=== PATIENT | male | born 1950 | race Caucasian/White ===

== ENCOUNTER 2017-02-23 20:45 | Emergency (ER) | payer MEDICARE, OTHER ==
[~2017-02-23] VITALS: Ht 175.3 cm; Wt 117.4 kg
[2017-02-23] MEDS ORDERED: LIPI40TA PO (21:45)
[2017-02-23] MEDS ORDERED: ASPI1TAB69 PO (21:45)
[2017-02-23] MEDS ORDERED: METO50TA PO (21:45)
[2017-02-23] MEDS ORDERED: ENAL20TA PO (21:45)
[2017-02-23] MEDS ORDERED: CITA20TA4 PO (21:45)
[2017-02-23] MEDS ORDERED: SILVER SULFADIAZINE 1% CR 50 GM JAR TOPICAL ONE (22:00)
[2017-02-23 22:11] VITALS: BP 166/93; PULSE 111; RESP 18; TEMP 98.1; O2SAT 96
[2017-02-23] MEDS ORDERED: SILV1CRE20 TOPICAL (22:11)
--- NOTE | 2017-02-23 22:11 | PD ---
HPI Chief Complaint: Skin Problem Time Seen by Provider: 22:04 Travel History International Travel<30 days: No Contact w/Intl Traveler<30days: No Traveled to known affect area: No History of Present Illness HPI Patient is a 66-year-old male presenting to emergency for evaluation of sunburn to his feet. Patient was out in the sun on Wednesday, he applied sunscreen but experienced a burn to the dorsal aspects of his feet. He denies a fever, chills , nausea, vomiting. He states his feet are sore. He called his primary doctor in [place] who called and triamcinolone cream. He has been using this, he is also been taking Tylenol. He reports his pain is a 5 out of 10. [facility] Past Medical History High Cholesterol: Yes Diminished Hearing: No Hypertension: Yes Tetanus Vaccination: < 5 Years Influenza Vaccination: Yes Past Surgical History Abdominal Surgery: Yes (UMBILICAL HERNIA) Joint Replacement: Yes (CAYETANO KNEES) Other Surgery: Yes (SINUS, LEFT NECK AND THROAT SKIN CANCER) Social History Alcohol Use: No Tobacco Use: No Substance Use: No Allergies-Medications (Allergen,Severity, Reaction): Coded Allergies: Morphine (Verified Allergy, Unknown, HIVES, 02/23/17) Reported Meds & Prescriptions Reported Meds & Active Scripts Active Silvadene Topical (Silver Sulfadiazine) 1 % Cream 1 Applic TOPICAL BID Reported Aspirin 81 Mg Tabdr 81 Mg PO DAILY Lipitor (Atorvastatin Calcium) 40 Mg Tab 40 Mg PO HS Enalapril (Enalapril Maleate) 20 Mg Tab 20 Mg PO BID Metoprolol Tartrate 50 Mg Tab 50 Mg PO BID Citalopram (Citalopram Hydrobromide) 20 Mg Tab 20 Mg PO DAILY Review of Systems Except as stated in HPI: all other systems reviewed are Neg General / Constitutional: No: Fever, Chills Cardiovascular: No: Chest Pain or Discomfort Respiratory: No: Shortness of Breath Gastrointestinal: No: Nausea Musculoskeletal: Positive: Myalgias, Edema, Pain Skin: Positive Change in Pigmentation, Positive Lesions Physical Exam Narrative GENERAL: Well-nourished, well-developed patient. SKIN: Focused skin assessment warm/dry. Erythema and edema noted to the dorsal aspect of his feet bilaterally. There is one blister on the right foot and one blister on the left foot each is approximately 2 cm in size. There is a smaller blister on the left foot approximately 1 cm in size. Positive pedal pulses, brisk capillary refill. HEAD: Normocephalic. EYES: No scleral icterus. No injection or drainage. NECK: Supple, trachea midline. No JVD or lymphadenopathy. CARDIOVASCULAR: Regular rate and rhythm without murmurs, gallops, or rubs. RESPIRATORY: Breath sounds equal bilaterally. No accessory muscle use. GASTROINTESTINAL: Abdomen soft, non-tender, nondistended. MUSCULOSKELETAL: No cyanosis, or edema. BACK: Nontender without obvious deformity. No CVA tenderness. Data Data Last Documented VS Vital Signs Date Time Temp Pulse Resp B/P Pulse Ox O2 Delivery O2 Flow Rate FiO2 02/23/17 22:22 98.1 111 18 166/93 96 02/23/17 22:21 21 Orders Silver Sulfadia 1% Crm (50 Gm) (Silvaden (02/23/17 22:00) Wound Care (02/23/17 22:11) MDM Medical Decision Making Medical Screen Exam Complete: Yes Emergency Medical Condition: Yes Interpretation(s) Vital Signs Date Time Temp Pulse Resp B/P Pulse Ox O2 Delivery O2 Flow Rate FiO2 02/23/17 22:22 98.1 111 18 166/93 96 02/23/17 22:21 96 18 98 21 02/23/17 22:11 98.1 111 18 166/93 96 Differential Diagnosis Superficial burn versus first-degree burn versus cellulitis versus other Narrative Course Patient is a 66-year-old male presenting to the emergency room evaluation of sunburn to his feet. He has been putting triamcinolone cream on it however he presents due to continued redness and pain. Blisters were drained, nonadherent dressing and Silvadene cream applied. Patient is encouraged to follow-up with his primary doctor. He is encouraged to apply sunscreen several times while in the sun. Patient is encouraged to return to emergency department for any new or worsening symptoms. Patient verbalized understanding of these instructions. Patient stable for discharge. Heart rate was initially elevated on arrival, reassess and 96. Patient stable for discharge. Diagnosis Primary Impression: Second degree burn of foot Qualified Code: T25.229A - Second degree burn of foot, unspecified laterality , initial encounter Referrals: Primary Care Physician Patient Instructions: General Instructions, Second Degree Burn (GEN) Additional Instructions: Follow-up with your primary doctor Apply Silvadene cream twice daily Use sunscreen when out in the sun, apply several times as directed Return to emergency department for any new or worsening symptoms Med/Other Pt SpecificInfo: Prescription(s) given Scripts Silver Sulfadiazine Topical (Silvadene Topical)1 % Cream1 Applic TOPICAL BID # 400 GM Ref 0 Prov:Karen Wu 02/23/17 Disposition: 01 DISCHARGE HOME Condition: Stable Karen Wu Feb 23, 2017 22:11
[2017-02-23 22:22] VITALS: BP 166/93; PULSE 111; RESP 18; TEMP 98.1; O2SAT 96
== END 2017-02-23 22:54 | disposition home or self-care (01) ==
LOC: PHED 20:45 → PHEFT 22:54
DX: L55.1 Sunburn of second degree (principal); E78.00 Pure hypercholesterolemia, unspecified; I10 Essential (primary) hypertension
CPT/HCPCS: 16020

== ENCOUNTER 2017-04-24 15:07 | Emergency (ER) | payer MEDICARE, OTHER ==
[~2017-04-24] VITALS: Ht 175.3 cm; Wt 115.0 kg
[~2017-04-24 15:07] MED LIST: ASPI1TAB69 PO; CITA20TA4 PO; ENAL20TA PO; LIPI40TA PO; METO50TA PO; SILV1CRE20 TOPICAL
[2017-04-24 15:11] VITALS: BP 157/89; PULSE 100; RESP 20; TEMP 97.9; O2SAT 95
[2017-04-24] MEDS ORDERED: ASPI81CH CHEW (15:18)
--- NOTE | 2017-04-24 15:47 | PD ---
HPI Chief Complaint: Laceration/Skin Injury Time Seen by Provider: 15:20 Travel History International Travel<30 days: No Contact w/Intl Traveler<30days: No Traveled to known affect area: No History of Present Illness HPI 66-year-old male presents emergency department for evaluation of laceration to the base of left thumb. She reports while cutting a watermelon in his kitchen knife slipped causing a flap laceration to the left thumb. He has full range of motion. He has normal sensation in the digit. The bleeding is well- controlled. He reports mild pain at the site of the laceration, worse with movement and relieved with rest, severity 2 out of 10.. He has no other medical complaint. [facility] Past Medical History Narrative Medical Significant for hypertension. High Cholesterol: Yes Diminished Hearing: No Hypertension: Yes Tetanus Vaccination: Unknown Influenza Vaccination: Yes ?: Not Past Surgical History Abdominal Surgery: Yes (UMBILICAL HERNIA) Joint Replacement: Yes (CAYETANO KNEES) Other Surgery: Yes (SINUS, LEFT NECK AND THROAT SKIN CANCER) Social History Alcohol Use: No Tobacco Use: No Substance Use: No Allergies-Medications (Allergen,Severity, Reaction): Coded Allergies: Morphine (Verified Allergy, Unknown, HIVES, 04/24/17) Reported Meds & Prescriptions Reported Meds & Active Scripts Active Reported Aspirin 81 Mg Chew 81 Mg CHEW DAILY Lipitor (Atorvastatin Calcium) 40 Mg Tab 40 Mg PO HS Enalapril (Enalapril Maleate) 20 Mg Tab 20 Mg PO BID Metoprolol Tartrate 50 Mg Tab 50 Mg PO BID Citalopram (Citalopram Hydrobromide) 20 Mg Tab 20 Mg PO DAILY Review of Systems Except as stated in HPI: all other systems reviewed are Neg Physical Exam Narrative GENERAL: Well-nourished, well-developed patient. SKIN: Focused skin assessment warm/dry. 2 cm laceration left thumb volar aspect. Full range of motion against resistance. No tendon nerve injury visualized. Normal sensation in the digit. Brisk cap refill. HEAD: Normocephalic. EYES: No scleral icterus. No injection or drainage. NECK: Supple, trachea midline. No JVD or lymphadenopathy. CARDIOVASCULAR: Regular rate and rhythm without murmurs, gallops, or rubs. RESPIRATORY: Breath sounds equal bilaterally. No accessory muscle use. MUSCULOSKELETAL: No cyanosis, or edema. 2 cm laceration left thumb volar aspect. Full range of motion against resistance. No tendon nerve injury visualized. Normal sensation in the digit. Brisk cap refill. Data Data Last Documented VS Vital Signs Date Time Temp Pulse Resp B/P Pulse Ox O2 Delivery O2 Flow Rate FiO2 04/24/17 15:11 97.9 100 20 157/89 95 MDM Medical Decision Making Medical Screen Exam Complete: Yes Emergency Medical Condition: Yes Differential Diagnosis Laceration, tendon injury Narrative Course [age]-year-old male presents emergency department for evaluation of laceration to the base of left thumb caused by a kitchen knife. Patient has a 2 cm flap laceration to the base of left thumb volar aspect. No tendon injury visualized. Patient has full range of motion and normal sensation in the digit. Bleeding was controlled. Laceration repair performed. Wound care instructions discussed with patient he agrees to follow-up for recheck in 2 days with his primary doctor. Diagnosis Primary Impression: Laceration of thumb Qualified Code: S61.012A - Laceration of left thumb without foreign body without damage to nail, initial encounter Referrals: Marcos Otero MD, Luther III MD Patient Instructions: Finger Laceration (ED), General Instructions Additional Instructions: Do not submerge the wound in water. He may begin showering tomorrow. Keep the area clean and dry. Return to emergency department if he develops increasing pain, redness, drainage from site. Sutures need to be removed in 10 days. Disposition: 01 DISCHARGE HOME Condition: Stable Sultana Du Apr 24, 2017 15:47
[2017-04-24] MEDS ORDERED: TETANUS/DIPHTHERIA TOXOID ADULT 0.5 ML VIAL IM ONE (16:00)
== END 2017-04-24 16:08 | disposition home or self-care (01) ==
LOC: PHEFT 15:07
DX: S61.012A Laceration without foreign body of left thumb without damage to nail, initial encounter (principal); W26.0XXA Contact with knife, initial encounter; Z23 Encounter for immunization; I10 Essential (primary) hypertension; E78.00 Pure hypercholesterolemia, unspecified; Z85.828 Personal history of other malignant neoplasm of skin
CPT/HCPCS: 12001; 90471; 90714